=== PATIENT | female | born 1990 | race Caucasian/White ===

== ENCOUNTER 2025-02-27 14:39 | Emergency (ER) | payer OTHER ==
[~2025-02-27] VITALS: Ht 162.6 cm; Wt 105.0 kg
[~2025-02-27 14:39] MED LIST: AMLO5TAB88 PO; LISI20TA31 PO; METO25TA6 PO
[2025-02-27 14:48] VITALS: O2SAT 97
[2025-02-27] MEDS ORDERED: ASPI-740 PO (16:30)
[2025-02-27] MEDS: KETOROLAC 30MG/ML VIAL IM ONE (16:44)
[2025-02-27] MEDS: DIPHENHYDRAMINE 25MG CAPSULE PO ONE (16:44)
[2025-02-27] MEDS: METOCLOPRAMIDE HCL 10MG TABLET PO ONE (16:45)
[2025-02-27 17:22] VITALS: BP 138/81; PULSE 73; RESP 18; TEMP 36.8; O2SAT 98
== END 2025-02-27 17:22 | disposition home or self-care (01) ==
LOC: ER 14:39
DX: G43.909 Migraine, unspecified, not intractable, without status migrainosus (principal); I10 Essential (primary) hypertension; Z79.899 Other long term (current) drug therapy
CPT/HCPCS: 99283; 81025; 96372; J1885; Q0163; J8597